=== PATIENT | female | born 2000 | race Caucasian/White ===

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

== ENCOUNTER 2019-12-01 20:23 | Emergency (ER) | payer MEDICAID ==
[~2019-12-01 20:23] MED LIST: CALCIUM CHLORIDE 1,000 MG/10 ML SYRINGE IV ONE; DOPamine/D5W 800 MG/250 ML DRIP IV ONE; EPINEPHrine 1 MG/10 ML SYRINGE ONE; LIDOCAINE PF 100 MG/5 ML (CARDIAC SYRINGE) IV ONE; SODIUM BICARB 8.4% 50 MEQ/50 ML SYRINGE IV ONE
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
== END 2019-12-02 02:00 ==
LOC: ED 20:23
DX: I46.9 Cardiac arrest, cause unspecified (principal)
CPT/HCPCS: 31500; 92950; 99291; J0171; J1265; J2001